=== PATIENT | male | born 1995 | race Caucasian/White ===

== ENCOUNTER 2019-11-08 13:52 | Emergency (ER) | payer OTHER ==
[~2019-11-08] VITALS: Ht 170.2 cm; Wt 86.2 kg
--- NOTE | 2019-11-08 13:40 | NUR ---
ED Nurse Note: Pt brought in by ambulance from his car c/o non radiating left sided chest pain x 1 hour. Pt reports driving his car when he started having sudden chest pain /. He pulled over and called 911. Respirations tachypneic, patient restless and anxious. HR in the 140s, sinus tachy on the monitor. All other vitals stable as documented. A+Ox4, speaking in full sentences. Pt reports using GHB 2 days ago.
[2019-11-08 13:52] VITALS: BP 132/88
--- NOTE | 2019-11-08 13:54 | NUR ---
ED Nurse Note: per ED PA, hold nitro.
[2019-11-08] MEDS ORDERED: Morphine Sulfate 2mg/ml Inj(IV/IM USE ONLY) ONE (13:58)
[2019-11-08] MEDS ORDERED: Morphine Sulfate 2mg/ml Inj(IV/IM USE ONLY) IVP ONE (14:00)
[2019-11-08] MEDS ORDERED: LORazepam Inj 2mg/ml 1ml IV ONE ×2 (14:00→14:45)
[2019-11-08] MEDS ORDERED: Nitroglycerin Subl 0.4mg tab SL PRN (14:00)
[2019-11-08 14:38] LABS: BASOPHILS % (AUTO) 0.7 % (0.0-2.0); HEMATOCRIT 44.6 % (42.0-52.0); HEMOGLOBIN 15.2 G/DL (14.2-18.0); LYMPHOCYTES % (AUTO) 11.5 % (20.0-45.0); MEAN CORPUSCULAR VOLUME 91 FL (80-99); MONOCYTES % (AUTO) 7.5 % (1.0-10.0); NEUTROPHILS % (AUTO) 80.3 % (45.0-75.0); PLATELET COUNT 238 K/UL (150-450); RED BLOOD COUNT 4.91 M/UL (4.70-6.10); RED CELL DISTRIBUTION WIDTH 13.4 % (11.6-14.8); WHITE BLOOD COUNT 16.5 K/UL (4.8-10.8)
[2019-11-08] MEDS ORDERED: Omnipaque 350 100ml vial INJ PRN (14:45)
[2019-11-08 14:51] LABS: ANION GAP 19 mmol/L (5-15); BLOOD UREA NITROGEN 16 mg/dL (7-18); CARBON DIOXIDE 18 MMOL/L (21-32); CHLORIDE 100 MMOL/L (98-107); CREATININE 1.3 MG/DL (0.55-1.30); SODIUM 137 MMOL/L (136-145)
--- NOTE | 2019-11-08 14:53 | NUR ---
ED Nurse Note: pt aware of need for urine specimen
[2019-11-08 15:02] LABS: ALANINE AMINOTRANSFERASE 69 U/L (12-78); ALBUMIN/GLOBULIN RATIO 1.2 (1.0-2.7); ALKALINE PHOSPHATASE 72 U/L (46-116); ASPARTATE AMINO TRANSFERASE 167 U/L (15-37); BILIRUBIN,TOTAL 0.7 MG/DL (0.2-1.0)
--- NOTE | 2019-11-08 15:23 | Emergency Room Report ---
History of Present Illness General Chief Complaint: Chest Pain Present Illness HPI 24-year-old male with history of HIV positive currently taking medication and under the care of infectious disease physician here brought in by paramedics due to sudden onset of chest pain while driving. Patient rates the pain 10 out of 10 without radiation complains of generalized numbness. Denies any headache and dizziness. Complains of palpitation. Patient presents with heart rate of 150. Denies any abdominal pain however complains of nausea. Denies blurry vision, dizziness, diarrhea, cough and congestion. Denies any history of asthma. Denies any tobacco smoke, marijuana use, alcohol intake. Reports a few days ago he took GHB and an unknown street male transplant drug. Aspirin 325 was given by paramedics. Patient complains of tearing sensation with chest pain which comes and goes. [place] anxious and reports that he also has history of anxiety and used to take Ativan however has not taken any Ativan in the past 5 months. (Luis Olivarez) Allergies: Coded Allergies: No Known Allergies (Unverified , 11/08/19) COVID-19 Screening Contact w/high risk pt: No Experienced COVID-19 symptoms?: No COVID-19 Testing performed RESIDENT SURGEON: Yes - one week ago COVID-19 Screening: Negative COVID-19 COVID-19 Testing Source: nasal (Luis Olivarez) Patient History Past Medical History: see triage record Past Surgical History: none Pertinent Family History: none Immunizations: UTD Reviewed Nursing Documentation: PMH: Agreed; PSxH: Agreed (Luis Olivarez) Review of Systems All Other Systems: negative except mentioned in HPI (Luis Olivarez) Physical Exam Vital Signs Date Time Temp Pulse Resp B/P (MAP) Pulse Ox O2 Delivery O2 Flow Rate FiO2 11/08/19 13:40 99.0 150 22 154/91 (112) 98 Room Air Sp02 EP Interpretation: abnormal - HR 150 General Appearance: alert, moderate distress Head: normocephalic, atraumatic Eyes: bilateral eye normal inspection, bilateral eye PERRL ENT: hearing grossly normal, normal pharynx, no angioedema, normal voice Neck: full range of motion, supple/symm/no masses Respiratory: chest non-tender, lungs clear, normal breath sounds, no rhonchi, no respiratory distress, no retraction, no wheezing, speaking full sentences Cardiovascular #1: regular rate, rhythm, no edema, no JVD, no murmur Cardiovascular #2: 2+ carotid (R), 2+ carotid (L), 2+ radial (R), 2+ radial (L) Gastrointestinal: normal bowel sounds, non tender, soft, non-distended, no guarding, no rebound Genitourinary: no CVA tenderness Musculoskeletal: back normal, no calf tenderness Neurologic: alert, motor strength/tone normal, oriented x3, sensory intact, responsive, speech normal Psychiatric: judgement/insight normal, memory normal, mood/affect normal, no suicidal/homicidal ideation, anxious Skin: no rash Lymphatic: no adenopathy (Luis Olivarez) Procedures Critical Care Time Critical Care Time Total critical care time: Approximately 45 minutes Due to a high probability of clinically significant, life threatening deterioration, the patient required the highest level of preparedness to intervene emergently and I personally spent this critical care time directly and personally managing the patient. This critical care time included obtaining a history, examining the patient, pulse oximetry, ordering and reviewing studies , ordering treatments, evaluating response to treatment and updating management plan as needed, frequent reassessment and discussion with other providers as well as arranging for ultimate disposition. This critical to care time was performed to assess and manage the high probability of life-threatening deterioration that could result in multiorgan failure. This critical care time is separate from the separately billable procedures and treating other patients. (Durga Rand MD) Medical Decision Making PA Attestation All diagnoses and treatment plans were reviewed and discussed with my supervising physician Dr. Rand (Luis Olivarez) PA Attestation I participate in the care of this patient along with SHITAL Chen Briefly, this a 24-year-old male with a history of HIV brought in for evaluation of chest pain shortness of breath. This is in the setting of recent GHB use. Patient had a positive troponin and positive d-dimer. EKG showed sinus tachycardia though T waves appeared slightly peaked. Potassium was within normal limits. He was given aspirin and Versed for anxiety. He is no longer compliant with his anxiety regimen. CTA did not show any large central occluding pulmonary emboli however peripheral emboli could not be excluded as the study was graded by motion artifact. Second troponin is rising. Patient remains tachycardic but states he feels somewhat better. Discussed admission with [facility] who agreed and he authorized admission to this facility as his troponin was rising he was deemed unstable for transfer. Originally, patient was amenable however he now informed me that he wishes to leave the hospital. He states he will follow-up with cardiology on an outpatient basis. I explained to him that because of his rising troponin, elevated dimer and rapid heart rate he may be experiencing acute coronary event which may result in severe disability and even sudden cardiac . He verbalized understanding and repeated this to me however stated that he had family obligations that he had to go address at this time. He stated he would call [facility] immediately after discharge to schedule reevaluation by outpatient lan analyst and return to emergency department should he experience any further symptoms or change his mind regarding treatment and admission. Patient signed AMA paperwork and left the emergency department. [facility] was notified. (Durga Rand MD) Diagnostic Impression: Primary Impression: Elevated troponin Additional Impressions: ACS (acute coronary syndrome) Positive D dimer Amphetamine abuse Left against medical advice ER Course 24-year-old male with history of HIV positive currently taking medication and under the care of infectious disease physician here brought in by paramedics due to sudden onset of chest pain while driving. Patient rates the pain 10 out of 10 without radiation complains of generalized numbness. Denies any headache and dizziness. Complains of palpitation. Patient presents with heart rate of 150. Denies any abdominal pain however complains of nausea. Denies blurry vision, dizziness, diarrhea, cough and congestion. Denies any history of asthma. Denies any tobacco smoke, marijuana use, alcohol intake. Reports a few days ago he took GHB and an unknown street male transplant drug. Aspirin 325 was given by paramedics. Patient complains of tearing sensation with chest pain which comes and goes. [place] anxious and reports that he also has history of anxiety and used to take Ativan however has not taken any Ativan in the past 5 months. Ddx considered but are not limited to: TN, Angina, COPD, GERD, PE Vital signs: are WNL, pt. is afebrile H&PE are most consistent with elevated troponin, ACS, meth abuse, positive D dimer ORDERS: EKG, Chest XR, cardiac labs, CTA chest ED INTERVENTIONS: NS bolus, Ativan, Zofran, morphine Patient was transferred to [facility] for admission with diagnosis of elevated troponin to Dr. Singh under supervision of : Giorgi pt stable at time of admission Patient decided to sign AGAINST MEDICAL ADVICE once everything was in place for him to be transferred to [facility] patient has full judgment making this decision at this time. (Luis Olivarez) EKG Diagnostic Results Rate: tachycardiac ST Segments: no acute changes Other Impression no acute st changes (Luis Olivarez) Chest X-Ray Diagnostic Results Chest X-Ray Diagnostic Results : Chest X-Ray Ordered: Yes # of Views/Limited/Complete: 1 View Indication: Chest Pain EP Interpretation: Yes PA Xray: Interpretation reviewed, by supervising MD, and agrees with findings. Interpretation: no consolidation, no effusion, no pneumothorax, no acute cardiopulmonary disease Impression: No acute disease Electronically Signed by: Luis Negron PA-C (Luis Olivarez) CT/MRI/US Diagnostic Results CT/MRI/US Diagnostic Results : Imaging Test Ordered: CTA chest with contrast Impression no obvious PE, lots of artifact due to pt's noncompliance (Luis Olivarez) Last Vital Signs Date Time Temp Pulse Resp B/P (MAP) Pulse Ox O2 Delivery O2 Flow Rate FiO2 11/08/19 13:40 99.0 150 22 154/91 (112) 98 Room Air (Luis Olivarez) Disposition: SHORT-TERM HOSP Condition: Serious Referrals: NOT CHOSEN IPA/,REFERRING (PCP) Luis Olivarez Nov 08, 2019 15:23 Durga Rand MD Nov 08, 2019 16:14
--- NOTE | 2019-11-08 15:51 | NUR ---
ED Nurse Note: pt en route to Ct
[2019-11-08 16:00] VITALS: BP 128/81
[2019-11-08] MEDS ORDERED: Midazolam 2mg/2ml Inj IVP ONE ×2 (16:00→16:30)
[2019-11-08 16:21] LABS: APPEARANCE,URINE CLEAR; BILIRUBIN, URINE NEGATIVE (NEGATIVE); COLOR,URINE PALE YELLOW; GLUCOSE, URINE (UA) NEGATIVE (NEGATIVE); KETONES,URINE 4+ (NEGATIVE); LEUKOCYTE ESTERASE ,URINE NEGATIVE (NEGATIVE); NITRITE,URINE NEGATIVE (NEGATIVE); PH,URINE 5 (4.5-8.0); PROTEIN,URINE 2+ (NEGATIVE); UROBILINOGEN,URINE NORMAL MG/DL (0.0-1.0)
--- NOTE | 2019-11-08 16:30 | NUR ---
ED Nurse Note: urinary catheter not necessary as patient provided specimen. ED PA aware.
[2019-11-08] MEDS ORDERED: DiphenhydrAMINE 50mg/ml Inj IVP ONE (17:00)
--- NOTE | 2019-11-08 17:26 | NUR ---
ED Nurse Note: Went downstairs with patient on the monitor. Pt reports allergy to iodine. Pt reports hives and itching but denies throat closing/syncope. Called Dr. Rand in ED who said to give contrast anyway and we will give benadryl after. Pt agrees. Versed given IVP as ordered by ED PA before CTA. During CT scan, pt continues to put arms over chest and cannot relax for test. Pt says "I want to get out of here. Get me out!" Test not successful. Pt brought back up to ED. Benadryl administered as ordered
--- NOTE | 2019-11-08 17:38 | Diagnostic Imaging Report ---
ndication: Chest pain Technique: IV administration nonionic contrast. Spiral acquisitions obtained from the lung bases to the lung apices. Multiplanar and 3-D reconstructions were generated. Total dose length product 252 mGycm. CTDIvol(s) 80 mGy. Dose reduction achieved using automated exposure control Comparison: none Findings: There is poor quality opacification of the pulmonary arteries. Exam is also limited due to respiratory motion artifact. Per technologist, IV infiltrated and patient was unable to hold still. No gross large vessel central pulmonary emboli demonstrated. Peripheral emboli impossible to confidently exclude. Normal caliber pulmonary arteries. No evidence of thoracic aortic aneurysm or dissection. There is borderline cardiomegaly. Lungs demonstrate an area of air-trapping in the posterior medial left lower lobe as well as a small cystic space associated with a small area of scarring. There is a generalized mild mosaic perfusion pattern. No infiltrates, effusions, or definite congestion. No mediastinal or hilar mass or adenopathy. No pericardial effusion. No axillary or chest wall mass or adenopathy. There is a small sliding-type hiatal hernia. The included upper abdominal anatomy demonstrates diffuse hepatic low-attenuation consistent with fatty change. Impression: Limited exam, due to respiratory motion artifact and poor quality opacification of the pulmonary arteries that she above discussion. No gross large vessel central pulmonary emboli. Smaller peripheral emboli cannot be excluded with any confidence. Mild mosaic pulmonary perfusion pattern. This can be seen in multiple entities, including mild pulmonary edema, atelectasis, COPD, among other possibilities Area of air-trapping in the posterior medial left lower lobe, etiology indeterminate but probably chronic Fatty liver Small sliding hiatal hernia The CT scanner at [facility] is accredited by the [employer] and the scans are performed using protocols designed to limit radiation exposure to as low as reasonably achievable to attain images of sufficient resolution adequate for diagnostic evaluation.
[2019-11-08 17:50] VITALS: BP 122/79
--- NOTE | 2019-11-08 17:56 | Diagnostic Imaging Report ---
Indication: Chest pain, shortness of breath Technique: One view of the chest Comparison: none Findings: Suboptimal inspiration. Lungs pleural spaces are clear. The heart size is normal. Impression: No acute process
[2019-11-08 18:29] VITALS: BP 126/71
--- NOTE | 2019-11-08 18:29 | NUR ---
AMA: SEE AMA FORM. ED MD at bedside to discuss pt's condition with him and that he was to be admitted. Pt stated that he does not want to be admitted and he will "handle it with Wu this week." Pt instructed by ED MD about the risks of leaving AMA. Pt still refused to stay. Pt aware that leaving AMA could mean possible , but pt still refuses to be admitted. Pt signed AMA form. IV and ID band removed. Pt ambulated with steady gait out of the ER. Pt says he plans to take the bus home. A+Ox4, speaking in full sentences.
== END 2019-11-08 18:30 | disposition short-term general hospital (02) ==
LOC: EDBD 13:52 → EMR 14:00 → CANBEDREQ 18:28 → EMR 18:30
DX: R79.89 Other specified abnormal findings of blood chemistry (principal); I24.9 Acute ischemic heart disease, unspecified; F15.10 Other stimulant abuse, uncomplicated; B20 Human immunodeficiency virus [HIV] disease; R00.0 Tachycardia, unspecified; K44.9 Diaphragmatic hernia without obstruction or gangrene; K76.0 Fatty (change of) liver, not elsewhere classified
CPT/HCPCS: 36415; 71045; 71275; 80053; 80307; 81003; 83880; 84484; 85025; 85379; 85610; 85730; 93005; 96361; 96374; 96375; 96376; 99291; G0480; J1200; J2250; J2270; J2405; J7030; Q9967; U0002